=== PATIENT | male | born 1950 | race Caucasian/White ===

== ENCOUNTER → 2016-09-27 | Day surgery (SDC) | payer OTHER ==
[~2016-09-27] VITALS: Ht 172.7 cm; Wt 73.2 kg
[~2016-09-27] MED LIST: *morphine SULFATE 8 MG/ML PERIprocedure ONLY ONE; ACETAMINOPHEN 1000 MG/100 ML VIAL IV SCH; ASPI81CH CHEW; BUPIVACAINE LIPOSOME PF 1.3% 20 ML VIAL ONE; BUPIVACAINE/EPINEPHRINE 0.5% PF 30 ML VIAL INFIL ONE; CHLORHEXIDINE GLUCONATE 2 % 1 PACK (2 CLOTHS) TOPICAL PRN; DO NOT ADM ANY ANTICOAGULANT DRUGS PRN; FAMOTIDINE 20 MG/2 ML VIAL IV ONE; FAMOTIDINE 20 MG/2 ML VIAL ONE; INSULIN HUMAN REGULAR 1,000 UNITS/10 ML VIAL SQ PRN; KETOROLAC TROMETHAMINE 30 MG/ML (IVP) VIAL IV PUSH ONE; KETOROLAC TROMETHAMINE 30 MG/ML (IVP) VIAL ONE; LACTATED RINGER'S 1000 ML INJ 1,000 ML IV ONE; LACTATED RINGER'S 1000 ML IV PRN; LOSA100T PO; METOPROLOL TARTRATE 25 MG TAB PO PRN; MIDAZOLAM HCL 2 MG/2 ML VIAL IV ONE; MIDAZOLAM HCL 2 MG/2 ML VIAL ONE; MORPHINE SULFATE 4 MG/ML INJ IV PRN; NEOSTIGMINE 3 MG/3 ML SYR IV ONE; ONDANSETRON HCL 4 MG/2 ML VIAL IV PRN; ONDANSETRON HCL 4 MG/2 ML VIAL IV PUSH ONE; PHENYLEPH/NS 1000 MCG/10 ML SYR IV ONE; POVIDONE IODINE 5% (ANTISEPSIS KIT) 4 APPLICATIONS EACH NARE PRN; PROMETHAZINE INJ 25 MG/ML VIAL ONE; PROPOFOL 200 MG/20 ML AMP IV ONE; SODIUM CHLORID 0.9% 500 ML IV PRN; ceFAZolin 2 GM PREMIX 50 ML IV SCH; ePHEDrine/NS 25 MG/5 ML SYR IV ONE; fentaNYL CITRATE 250 MCG/5 ML AMP ONE; oxyCODONE/ACETAMINOPHEN 5 MG/325 MG TAB PO PRN
[2016-09-27 07:31] VITALS: BP 166/97; PULSE 73; RESP 18; TEMP 98.5; O2SAT 99
[2016-09-27 13:00] VITALS: BP 147/94; PULSE 67; RESP 16; TEMP 97.6; O2SAT 96
[2016-09-27] MEDS: oxyCODONE/ACETAMINOPHEN 5 MG/325 MG TAB PO PRN ×2 (13:00→14:50)
--- NOTE | 2016-09-27 16:37 | PD.OP ---
cc: Tez Toro MD Operative Report Date of Surgery: Sep 27, 2016 Preoperative Diagnosis: 1. Umbilical hernia 2. Left inguinal hernia Postoperative Diagnosis: 1. Umbilical hernia 2. Left inguinal hernia Procedure: 1. Laparoscopic repair of umbilical hernia with ventral light ST mesh and echo deployment system 2. Open repair of left inguinal hernia with pro-pony roll finisher mesh Anesthesia: Gen. endotracheal Surgeon: Tez Toro Court Officer(s): Acosta Dalal MS3 Operation and Findings: Operative findings: The patient is found to have a 2.5 cm defect at the umbilicus with a large amount of inspissated fat within the umbilical hernia sac incorporating approximately 3-3-1/2 cm. The left inguinal hernia was seen to be quite chronic and with a thick-walled sac which was seen to be all indirect. The inguinal floor was attenuated but grossly intact. Operative procedure: The patient brought to the operating room and after satisfactory general endotracheal anesthesia was obtained, the entire abdomen was prepped and draped in usual sterile fashion. 0.5% Marcaine with epinephrine was used to infiltrate skin for local anesthesia. Small incision was made in the left upper quadrant in the subcostal region and by blunt dissection the peritoneal cavity was entered with care being taken not to injure the underlying viscera. Finger sweep proved to show there were no adhesions. A 12 mm GelPort was placed within the perineal cavity and the balloon engaged. The abdomen was then insufflated to 15 mmHg using common dioxide. The camera was inserted and visceral injury inspected for, with none being identified. Under direct visualization 5 mm port was placed in the left lower quadrant and 2 more 5 mm ports were placed in the right lower and right upper quadrants all under direct visualization. The fatty tissue associated with the umbilical hernia was removed and set aside for later withdrawal. The fatty tissue was resected with the Harmonic scalpel. Further fat tissue was taken down superiorly and inferiorly from the peritoneal surface using Harmonic scalpel. The falciform ligament was also partially taken down. The mesh was measured to allow for coverage of the hernia as well as the superior diastases recti. Once the fatty tissue been completely cleared and hemostasis checked for and found be satisfactory, the 15 x [address] mesh was rolled on to its trocar and then inserted in the peritoneal cavity without problem. It was unfurled and the proper spot selected for withdrawal of the insufflation tubing which was accomplished with a Bivins suture passer just above the umbilicus. The mesh was brought into close approximation with the anterior abdominal wall and it was secured with a hemostat holding it in place with the insufflation tubing. The mesh was fixated in 4 quadrants using Endo tacks after which the mesh backbone was removed. The remainder of the mesh was fixated to the anterior abdominal wall to allow for complete flattening of the mesh against the anterior abdominal wall. No trans-fascial sutures were placed. Hemostasis was checked for and found be satisfactory. The carbon dioxide was then vented as completely as possible the atmosphere after seeing the mesh being properly located and covering all aspects of the hernia. The 12 mm fascial defect was closed with interrupted 0 Vicryl suture and the skin closed with interrupted 4- 0 PDS subcutaneous tumor stitches. Attention was then turned to the left inguinal hernia. Further 0.5% Marcaine with epinephrine was used to infiltrate the skin for local anesthesia. A transverse left inguinal incision was made, and carried out sharply through the subcutaneous tissue the cautery being used for hemostasis. Incision was deepened to the external oblique fascia which was opened in the direction of its fibers down to and through the external ring. The underside of the fascia was cleaned and the spermatic cord was dissected free from from the surrounding tissues and surrounded with a Madiha drain. The hernia sac was dissected free from the cord structures down to the internal ring. After reducing the sac within the properitoneal space extra tissue was dissected free from around the spermatic cord using the cautery. The inguinal floor was then cleared of adhesions and seen to be grossly intact with a grossly widened internal ring. The inguinal floor was then closed with interrupted 0 Vicryl sutures brought between the internal oblique fascia and the shelving edge of the inguinal ligament. Once the internal ring and been re-created in this fashion a piece of pro-pony roll finisher mesh was cut to the appropriate shape. It was secured anterior to the repair by pressing its posterior Vicryl technician terminal and repeater into the surrounding tissue. After seeing the mesh was completely secured on all sides of the repair as well as the internal ring it was secured to the pubis with a single suture of 0 Prolene. Hemostasis was checked for and found be satisfactory. The area was checked for hemostasis which was again seen to be satisfactory. The external oblique fascia was completely obliterated and it was necessary to close. Fascial tissue over the spermatic cord with interrupted 3-0 Vicryl sutures. The subcutaneous tissues tissue was closed with interrupted 3-0 Vicryl sutures. The skin was then closed with interrupted 4-0 PDS subcutaneous tumor stitches. Steri-Strips sterile dressing were placed and the patient was then awakened and taken from the operating room, in satisfactory condition, having tolerated the procedure without problem. Estimated blood loss was less than 25 mL's. The instrument, sponge, needle counts were reported as being correct 2 at the end of procedure. Tez Toro MD Sep 27, 2016 16:37
== END | disposition home or self-care (01) ==
LOC: HSDC 06:48
PROVIDERS: ATTEND Surgery
DX: K42.9 Umbilical hernia without obstruction or gangrene (principal); K40.90 Unilateral inguinal hernia, without obstruction or gangrene, not specified as recurrent; I10 Essential (primary) hypertension; Z85.818 Personal history of malignant neoplasm of other sites of lip, oral cavity, and pharynx
CPT/HCPCS: 49505; 49652; C1781; J0131; J0690; J2250; J2270; J2370; J2405; J2550; J2710; J3010; J7120; C9290; J1885